=== PATIENT | male | born 1980 | race Caucasian/White ===

== ENCOUNTER 2022-01-02 15:46 | Emergency (ER) | payer OTHER ==
[2022-01-02] MEDS ORDERED: DIPHTH,PERTUSS(ACELL),TET 0.5 ML DISP.SYRIN IM ONE ×2 (16:11→16:25)
[2022-01-02] MEDS ORDERED: CEPHALEXIN MONOHYDRATE 500 MG CAPSULE (UD) PO ONE (16:11)
[2022-01-02 16:18] VITALS: BP 110/64; PULSE 80; TEMP 99.4; BMI 24.9
[2022-01-02] MEDS ORDERED: CEPHALEXIN MONOHYDRATE 500 MG CAPSULE (UD) ONE (16:25)
== END 2022-01-02 16:41 | disposition home or self-care (01) ==
LOC: FER 15:46
PROC: 3E0234Z Introduction of Serum, Toxoid and Vaccine into Muscle, Percutaneous Approach (ICD-10-PCS; principal; 2022-01-02)
DX: L03.011 Cellulitis of right finger (principal); S60.456A Superficial foreign body of right little finger, initial encounter; W45.8XXA Other foreign body or object entering through skin, initial encounter
CPT/HCPCS: 90715; 99284-25